=== PATIENT | male | born 1990 | race Two or more races ===

== ENCOUNTER 2020-10-22 03:05 | Emergency (ER) | payer MEDICAID, OTHER ==
[~2020-10-22] VITALS: Ht 175.3 cm; Wt 81.6 kg
--- NOTE | 2020-10-22 03:30 | NUR ---
PT WAS BIB TO THE ER BY [facility] STAFF FOR SI. PT TEPORTED HEARING VOICES FROM "STEPHANIE" , REPORTED SI W/ PLAN TO JUMP IN FRONT OF TRAFFIC. PT WAS PLACED ON 5150 HOLD BY MENTAL HEALTH CREW. ALSO W/ C/O BILATERAL FOOT PAIN. PT AMBULATORY W/ STEADY GAITS TO THE BATHROOM. URINE SAMPLE OBTAINED AND PALCED PT IN BED 14 ER ON CLOSE OBSERVATION OF A SITTER. GOWNED UP AND SI PRECAUTION IMPLEMENTED. WILL CONT TO MONITOR ,
[2020-10-22 03:34] LABS: BILIRUBIN,URINE Negative (NEGATIVE); COLOR,URINE YELLOW (YELLOW); LEUKOCYTE ESTERASE ,URINE Negative (NEGATIVE); NITRITE, URINE Negative (NEGATIVE); PROTEIN,URINE 100 mg/dl (NEGATIVE); UGLUCOSE Negative (NEGATIVE); UROBILINOGEN,URINE 0.2 EU/dL (0.2)
--- NOTE | 2020-10-22 03:42 | NUR ---
covid swab sent to lab
[2020-10-22 03:43] LABS: BASOPHILS % (AUTO) 0.5 % (0.0-2.0); EOSINOPHILS % (AUTO) 0.2 % (0.0-6.0); HEMATOCRIT 45 % (39-51); HEMOGLOBIN 15.3 g/dL (13.5-17.5); LYMPHOCYTES # (AUTO) 2.1 K/uL (0.8-4.8); LYMPHOCYTES % (AUTO) 23.4 % (20.0-44.0); MEAN CORPUSCULAR HGB CONC 34 g/dl (31.0-36.0); MEAN CORPUSCULAR VOLUME 92 fL (80-96); MONOCYTES # (AUTO) 0.7 K/uL (0.1-1.30); MONOCYTES % (AUTO) 8.1 % (2.0-12.0); NEUTROPHILS # (AUTO) 6.2 K/uL (1.8-8.9); NEUTROPHILS % (AUTO) 67.8 % (43.0-81.0); PLATELET COUNT (AUTO) 291 K/uL (150-450); RED BLOOD CELL COUNT(AUTO) 4.88 MIL/uL (4.5-6.0); WHITE BLOOD COUNT (AUTO) 9.1 K/uL (4.3-11.0)
[2020-10-22 03:45] LABS: BACTERIA,URINE None seen /HPF (None Seen); RBC,URINE 0-2 /HPF (0-2); SQUAMOUS EPITHELIAL CELL,UR Rare /HPF (None Seen); WBC,URINE 0-2 /HPF (0-3)
[2020-10-22 03:50] LABS: CALCIUM, SERUM 8.9 mg/dL (8.5-10.1); CREATININE 0.9 mg/dL (0.6-1.3); POTASSIUM 3.5 mmol/L (3.5-5.1)
[2020-10-22] MEDS ORDERED: LORAZEPAM 0.5 MG TABLET ONE (03:53)
[2020-10-22] MEDS ORDERED: OLANZAPINE 5 MG TABLET ONE (03:53)
[2020-10-22] MEDS ORDERED: LORAZEPAM 1 MG TABLET PO ONE (04:00)
[2020-10-22] MEDS ORDERED: OLANZAPINE 5 MG TABLET PO ONE (04:00)
[2020-10-22 04:03] LABS: ALBUMIN 4.5 g/dL (3.4-5.0); BILIRUBIN,DIRECT 0.2 mg/dL (0.0-0.2); BILIRUBIN,TOTAL 0.8 mg/dL (0.2-1.0); TOTAL PROTEIN, SERUM 8.3 g/dL (6.4-8.2)
--- NOTE | 2020-10-22 05:05 | NUR ---
ISMAEL LOYA FROM CRISIS TEAM TO EVALUATE THE PT AND LEFT A VOICE MESSSAGE
--- NOTE | 2020-10-22 06:15 | NUR ---
SPOKE TO RAJNI WEINSTEIN , HE WILL BE HERE AOUND 9 TO 10 AM TO EVALUATE THE PT,
--- NOTE | 2020-10-22 08:36 | NUR ---
THE PATIENT IS HAVING BREAKFAST. NOTED WITH GOOD APPETITE AND TOLEARES PROVIDED FOOD WELL.
--- NOTE | 2020-10-22 11:30 | NUR ---
THE PATIENT EVALUATION DONE BY RAJNI WEINSTEIN.
--- NOTE | 2020-10-22 11:59 | NUR ---
[facility]
--- NOTE | 2020-10-22 12:56 | NUR ---
REPORT GIVEN TO NURSE MOREAU FROM [facility]
--- NOTE | 2020-10-22 15:03 | NUR ---
THE PATIENT IN STABLE CONDITION AND TRANSFERED TO [facility].
[2020-10-22 15:04] VITALS: BP 131/76
== END 2020-10-22 15:04 ==
LOC: ER 03:08
DX: F23 Brief psychotic disorder (principal); F15.10 Other stimulant abuse, uncomplicated; Z20.822 Contact with and (suspected) exposure to COVID-19; R45.851 Suicidal ideations; R74.01 Elevation of levels of liver transaminase levels; F17.210 Nicotine dependence, cigarettes, uncomplicated
CPT/HCPCS: 36415; 80048; 80076; 80143; 80307; 80320; 81001; 85025; 87426; 99285; C9803; G0480